=== PATIENT | female | born 1965 | race Caucasian/White ===

== ENCOUNTER 2020-04-16 08:37 | Outpatient (NON) | payer MEDICARE, OTHER, SELFPAY ==
[2020-04-17 06:46] LABS: SARS-CoV-2 RNA PCR Negative
== END 2020-04-16 08:38 ==
LOC: ANHCOVIDDT 08:39
PROVIDERS: PCP Family Medicine; Visit Provider Family Medicine
DX: J01.90 Acute sinusitis, unspecified (principal); Z20.828 Contact with and (suspected) exposure to other viral communicable diseases
CPT/HCPCS: 87635; C9803; U0003

== ENCOUNTER 2020-05-10 11:06 | Outpatient (NON) | payer MEDICARE, OTHER, SELFPAY ==
[2020-05-10 23:01] LABS: SARS-CoV-2 RNA PCR Negative
== END 2020-05-10 11:07 ==
LOC: ANHCOVIDDT 11:08
PROVIDERS: PCP Family Medicine; Visit Provider Family Medicine
DX: Z20.828 Contact with and (suspected) exposure to other viral communicable diseases (principal); J01.90 Acute sinusitis, unspecified
CPT/HCPCS: 87635; C9803; U0003

== ENCOUNTER → 2020-07-01 14:10 | Outpatient (CLI) | payer MEDICARE, OTHER, SELFPAY ==
--- NOTE | ~2020-07-01 | MM_ITS ---
EXAMINATION: MM screening [facility] BI w ana HISTORY: Screening mammogram TECHNIQUE: Craniocaudal and mediolateral oblique 3-D tomosynthesis images were obtained and synthetic 2-D images were generated. CAD analysis was submitted and interpreted. COMPARISON: 05/02/2018, 08/17/2016, 04/27/2015 BREAST PARENCHYMAL COMPOSITION: There are scattered areas of fibroglandular density. FINDINGS: There is no evidence of suspicious mass, calcification, or architectural distortion to sugg est malignancy in either breast. There has been no suspicious interval change. IMPRESSION: 1. No mammographic evidence of malignancy. 2. Recommend routine screening mammography in one year. BI-RADS Category 1: Negative Reviewed, dictated and finalized at location A. ER RUNNER
== END ==
PROVIDERS: PCP Family Medicine; Referring Provider Obstetrics & Gynecology; Visit Provider Obstetrics & Gynecology Gynecology
DX: Z12.31 Encounter for screening mammogram for malignant neoplasm of breast (principal)
CPT/HCPCS: 77063; 77067

== ENCOUNTER → 2020-09-06 15:23 | Outpatient (CLI) | payer MEDICARE, OTHER, SELFPAY ==
--- NOTE | ~2020-09-06 | XR_ITS ---
XR chest 2V DATE: 09/06/2020 15:37 INDICATION: Cough. Acute bronchitis. TECHNIQUE: PA and lateral views COMPARISON: 03/13/2009 PA and lateral chest FINDINGS: Normal heart size. No hilar or mediastinal enlargement. No pulmonary infiltrate or consolid ation, pleural effusion or pulmonary vascular congestion or pneumothorax. Diffuse osteopenia. IMPRESSION: No active cardiopulmonary disease Reviewed, dictated and finalized at location A.
== END ==
PROVIDERS: PCP Family Medicine; Visit Provider Family Medicine
DX: J20.9 Acute bronchitis, unspecified (principal)
CPT/HCPCS: 71046

== ENCOUNTER → 2020-09-07 07:10 | Outpatient (CLI) | payer MEDICARE, OTHER, SELFPAY ==
[2020-09-07 20:45] LABS: SARS-CoV-2 RNA PCR Negative
== END ==
PROVIDERS: PCP Family Medicine; Visit Provider Family Medicine
DX: J20.9 Acute bronchitis, unspecified (principal); Z20.822 Contact with and (suspected) exposure to COVID-19
CPT/HCPCS: C9803; U0003; U0005

== ENCOUNTER → 2020-12-21 15:33 | Outpatient (CLI) | payer MEDICARE, OTHER, SELFPAY ==
--- NOTE | ~2020-12-21 | XR_ITS ---
XR lumbar spine 2-3V 12/21/2020 15:59 Indication: Low back pain Procedure: 3 views lumbar spine Comparison: No prior studies for comparison. Findings: Normal lumbar lordosis. Vertebral body heights are maintained. There is disc narrowing at a ll lumbar levels. No evidence for acute fracture or traumatic malalignment. No spondylolisthesis. Ped icles intact. Sacral foramen are symmetric. Impression: 1: Mild lumbar spondylosis. Reviewed, dictated and finalized at location A. Impression: 1: Mild lumbar spondylosis.
--- NOTE | ~2020-12-21 | XR_ITS ---
XR thoracic spine 3V 12/21/2020 16:00 Indication: Thoracic back pain for 2 years Procedure: 4 views thoracic spine Comparison: No prior studies for comparison. Findings: Mild dextrocurvature of the thoracic spine. Vertebral body heights are maintained. No fract ure or traumatic malalignment. There is mild disc narrowing and endplate hypertrophy at multiple leve ls. No paraspinal soft tissue abnormality. Calcified granuloma left upper lung. Surrounding osseous s tructures within normal limits. Pedicles intact. Impression: 1: Mild thoracic spondylosis. Reviewed, dictated and finalized at location A. Impression: 1: Mild thoracic spondylosis.
== END ==
PROVIDERS: PCP Family Medicine; Visit Provider Nurse Practitioner Family
DX: M47.894 Other spondylosis, thoracic region (principal); M47.896 Other spondylosis, lumbar region
CPT/HCPCS: 72072; 72100

== ENCOUNTER 2021-03-08 09:04 | Outpatient (CLI) | payer MEDICARE, OTHER, SELFPAY ==
--- NOTE | ~2021-03-08 | US_ITS ---
EXAMINATION: US abdomen complete EXAM DATE: 03/08/2021 09:54 INDICATION: K80.50 - Calculus of bile duct without cholangitis or cho.... TECHNIQUE: Multiple grayscale and Doppler images of the complete abdomen were obtained (by a technolo gist who performed the scan) and subsequently reviewed. Comparison is made to prior examination from 01/16/2008. FINDINGS: The abdominal aorta is normal in caliber. Visualized portion IVC is patent. The pancreatic head a nd body are normal in appearance. The pancreatic tail is not visualized. The liver has normal echogenicity and contour. There are no focal liver lesions identified. There is no evidence of intrahepatic biliary duct dilation. Portal venous flow was seen in the hepatopedal , normal direction and has normal Doppler waveform. Common bile duct measures 3 mm, which is normal. The gallbladder wall is normal in thickness, with ex pected amount of distention. No sonographic evidence of pericholecystic fluid. There is no cholelit hiases. Technologist performing exam reports patient did not demonstrate sonographic Levy's sign. Please note that this sign is less reliable in patients who have received pain medication. Right kidney: There is normal contour and echogenicity. It measures 10.5 x 3.4 x 3.5 centimeters. There are no focal renal lesions identified. There is no hydronephrosis. Left kidney: There is normal contour and echogenicity. It measures 10.5 x 5.1 x 5.2 centimeters. T here are no focal renal lesions identified. There is no hydronephrosis. The spleen measures 9.5 centimeters and is morphologically normal. IMPRESSION: 1. Unremarkable complete abdominal ultrasound exam. Reviewed, dictated and finalized at location A.
== END 2021-03-08 09:05 | disposition home or self-care (01) ==
LOC: ANHIMG 09:07
PROVIDERS: PCP Family Medicine; Visit Provider Family Medicine
DX: K80.50 Calculus of bile duct without cholangitis or cholecystitis without obstruction (principal)
CPT/HCPCS: 76700

== ENCOUNTER 2021-09-04 15:20 | Emergency (ER) | payer MEDICARE, MEDICAID, SELFPAY ==
--- NOTE | ~2021-09-04 | XR_ITS ---
EXAMINATION: XR chest 2V Exam Date/Time: 09/04/2021 15:54 CDT CLINICAL HISTORY: dry cough and central chest pain x 1 wk Comparison: 09/06/2020. RESULT: Lines, tubes, and devices: None. Lungs and pleura: Clear. Cardiomediastinal silhouette: Stable cardiomediastinal silhouette. Other: No acute osseous or upper abdominal finding. IMPRESSION: No acute cardiopulmonary process. Reviewed, dictated and finalized at location K.
[2021-09-04 15:25] VITALS: BP 178/90; PULSE 76; RESP 22; TEMP 36.7; O2SAT 97
--- NOTE | 2021-09-04 15:40 | ED.URI ---
HPI - URI/Sore Throat General Chief Complaint: Upper Respiratory Infection Stated Complaint: cough, congestion, headache, sinus Time Seen by Provider: 09/04/21 15:38 Source: patient and RN notes reviewed Mode of arrival: ambulatory Limitations: no limitations History of Present Illness HPI Narrative: Patient states that she has been sick for about a week. She did a tele visit with her doctor and was prescribed antibiotic she is on day 10/04. She was not tested for COVID and is concerned about that. MD elicited complaint: cough, sore throat, rhinorrhea and nasal congestion Onset (ago): week(s) (1) Consistency: constant Severity: moderate Description of mucous: yellow and green Able to tolerate fluids by mouth: Yes Exacerbating factors: nothing Relieving factors: nothing Context: sick contacts Associated symptoms: fever, myalgias, headache and cough Treatments prior to arrival: antibiotics Related Data Home Medications Medication Instructions Recorded Confirmed cyanocobalamin (vitamin B-12) 1,000 mcg PO DAILY 01/28/20 07/27/21 1,000 mcg tablet ubrogepant 50 mg tablet 50 mg PO ONCE PRN 04/19/21 07/27/21 Allergies Allergy/AdvReac Type Severity Reaction Status Date / Time Penicillins Allergy Unknown Abdominal Verified 09/04/21 15:55 pain Review of Systems Review of Systems: All systems reviewed & are unremarkable except as noted in HPI and below PMFSH Past Medical History Medical History Acute bronchitis Acute non-recurrent maxillary sinusitis BMI 31.0-31.9,adult BMI 33.0-33.9,adult BMI 34.0-34.9,adult Essential (primary) hypertension Gastritis Herpes zoster (~03/08/21) right upper chest Irritable bowel syndrome with both constipation and diarrhea Lumbago Mixed hyperlipidemia Total cholesterol 183, triglycerides 183, HDL 59 and LDL 96 on 07/27/2021 Muscle spasm SANJEEV treated with BiPAP Otitis externa Polyneuropathy Recurrent biliary colic Screening for osteoporosis (12/16/20) normal DEXA bone density study today with T-score 1.0 at the spine and 0.3 at the hips 12/16/2020 Thoracic back pain MRI of the thoracic spine on 12/27/2020 was unremarkable except for a benign 8 mm hemangioma at T6. No significant spinal stenosis or neuroforaminal stenosis noted Thoracic spondylosis with radiculopathy Tobacco use disorder, continuous The patient quit smoking December, UTI (urinary tract infection) Family History Family History Mother Depression Family history of arthritis Father Family history of cardiovascular disease Family history of arthritis Grandparent Carcinoma of colon Social History Social History (Updated 09/04/21 @ 15:55 by Js Montague MD) Smoking status: Current some day smoker Tobacco type: cigarettes and e-cigarettes/vaping Alcohol intake: current Substance use: never Substance use type: does not use Exam Const: General: healthy appearing, no acute distress and alert Nutritional Appearance: well nourished Orientation/consciousness: patient oriented x3 HENMT: Head: normal to inspection Ears: external ears normal Eyes: Conjunctivae: conjunctivae normal Pupils: Equal, round and reactive pupils present EOM: EOMs intact bilaterally Neck: Neck: normal visual inspection and no lymphadenopathy Resp: Effort & Inspection: normal respiratory effort Auscultation: clear to auscultation bilaterally Cardio: Rate: regular rate Rhythm: regular rhythm GI: GI Palp: Yes Soft to palpation and No Tenderness to palpation present (GI) Auscultation: normal bowel sounds Back/Spine/Pelvis: Cervical Spine: cervical ROM normal Thoracic/Lumbar Spine: thoraco-lumbar ROM normal Skin: General skin exam: normal color Rashes: no rashes Neuro: General: patient oriented x3, moves all extremities, no focal motor deficits and CN's II-XI intact bilaterally Speech: normal speech
[2021-09-04 16:40] LABS: Influenza A QL RT-PCR Negative (Negative); Influenza B QL RT-PCR Negative (Negative); SARS-CoV-2 RNA PCR Negative (Negative)
[2021-09-04 16:45] VITALS: BP 165/88; PULSE 69; RESP 18; TEMP 36.6; O2SAT 98
== END 2021-09-04 16:47 | disposition home or self-care (01) ==
PROVIDERS: Emergency Provider Emergency Medicine; PCP Family Medicine
DX: J40 Bronchitis, not specified as acute or chronic (principal); Z20.822 Contact with and (suspected) exposure to COVID-19; F17.200 Nicotine dependence, unspecified, uncomplicated
CPT/HCPCS: 71046; 87426; 87502; 99283; C9803; U0003; U0005

== ENCOUNTER → 2021-10-21 13:39 | Outpatient (CLI) | payer MEDICARE, MEDICAID, SELFPAY ==
--- NOTE | ~2021-10-21 | MM_ITS ---
EXAMINATION: MM screening [facility] BI w ana HISTORY: Screening mammogram TECHNIQUE: Craniocaudal and mediolateral oblique 3-D tomosynthesis images were obtained and synthetic 2-D images were generated. CAD analysis was submitted and interpreted. COMPARISON: 06/2020, 05/02/2018, 08/17/2016 bilateral screening mammogram examinations BREAST PARENCHYMAL COMPOSITION: The breasts are almost entirely fatty. FINDINGS: There is no evidence of suspicious mass, calcification, or architectural distortion to sugg est malignancy in either breast. There has been no suspicious interval change. IMPRESSION: 1. No mammographic evidence of malignancy. 2. Recommend routine screening mammography in one year. BI-RADS Category 1: Negative Reviewed, dictated and finalized at location A.
== END ==
PROVIDERS: PCP Family Medicine; Visit Provider Nurse Practitioner
DX: Z12.31 Encounter for screening mammogram for malignant neoplasm of breast (principal)
CPT/HCPCS: 77063; 77067

== ENCOUNTER 2022-02-17 00:40 | Day surgery (SDC) | payer MEDICARE, MEDICAID, SELFPAY ==
[2022-02-07 13:53] VITALS: BMI 33.0
[2022-02-17 11:12] VITALS: BP 140/81; PULSE 68; RESP 18; TEMP 36.5; O2SAT 99
--- NOTE | 2022-02-17 11:17 | WPDANESEPPF ---
Anes - Initial Pre Proc Eval Procedure: Operation Date: 02/17/22 13:00 Proposed Procedures p Colonoscopy - Js Smith MD Date/Time: 02/17/22 11:17 Surgeon: Js Smith MD Pre Op Diagnosis: change in bowel habits Patient Data Age: 56 Gender: F Height: 1.68 m Weight: 92.5 kg Last Vital Signs Temp 97.7 F 02/17/22 11:12 Pulse 68 02/17/22 11:12 Resp 18 02/17/22 11:12 BP 140/81 02/17/22 11:12 Pulse Ox 99 02/17/22 11:12 O2 Del Method Room Air 02/17/22 11:12 Allergies Allergy/AdvReac Type Severity Reaction Status Date / Time Penicillins Allergy Unknown Abdominal Verified 02/17/22 11:11 pain Home Medications Medication Instructions Recorded Confirmed Type cyanocobalamin (vitamin B-12) 1,000 mcg PO DAILY 01/28/20 02/07/22 History 1,000 mcg tablet fluticasone propionate 50 1 spray intranasal BID #16 grams 09/20/20 02/07/22 Rx mcg/actuation nasal spray,suspension (Flonase Allergy Relief) omeprazole 40 mg capsule,delayed 40 mg PO DAILY #30 caps 02/21/21 02/07/22 Rx release albuterol sulfate 1.25 mg/3 mL 1.25 mg (3 mL) inhalation Q4-6H 03/09/21 02/07/22 Rx solution for nebulization PRN shortness of breath or wheezing #90 mL nebulizers (Justine LC Sprint #1 ea 03/09/21 02/07/22 Rx Nebulizer Set) albuterol sulfate 90 mcg/actuation 2 puff inhalation Q4H PRN 05/26/21 02/07/22 Rx aerosol inhaler (ProAir HFA) shortness of breath or wheezing #18 grams trazodone 50 mg tablet 150 mg PO .QHS #90 tabs 06/06/21 02/07/22 Rx atorvastatin 80 mg tablet 80 mg PO DAILY #30 tabs 06/07/21 02/07/22 Rx valsartan 160 1 tablet PO DAILY #30 tabs 06/07/21 02/07/22 Rx mg-hydrochlorothiazide 12.5 mg tablet fluorometholone acetate 0.1 % eye 1 drp ophthalmic (eye) QID #5 mL 07/12/21 02/07/22 Rx drops,suspension (Flarex) mometasone-formoterol HFA 200 2 puff inhalation BID #39 grams 07/12/21 02/07/22 Rx mcg-5 mcg/actuation aerosol inhaler (Dulera) cetirizine 10 mg tablet (Zyrtec) 10 mg PO DAILY PRN allergy 07/27/21 02/07/22 Rx symptoms #90 tabs blood sugar diagnostic (Blood #100 ea 08/05/21 02/07/22 Rx Glucose Test strips) blood-glucose meter (Blood Glucose #1 ea 08/05/21 02/07/22 Rx Monitoring kit) lancets 33 gauge (BD Ultra Fine #100 ea 08/05/21 02/07/22 Rx Lancets) carvedilol 12.5 mg tablet 12.5 mg PO Q12H #200 tabs 08/21/21 02/07/22 Rx alprazolam 0.25 mg tablet 0.25 mg PO TID PRN anxiety #270 11/22/21 02/07/22 Rx tabs nitroglycerin 0.4 mg sublingual 0.4 mg sublingual Q5M PRN chest 02/02/22 02/07/22 Rx tablet pain #90 tabs topiramate 25 mg tablet 25 mg PO BID #180 tabs 02/02/22 02/07/22 Rx peg 3350-electrolytes 236 240 ml PO Q10M #4,000 mL 02/06/22 02/07/22 Rx gram-22.74 gram-6.74 gram-5.86 gram solution (Golytely) valacyclovir 500 mg tablet 500 mg PO DAILY 02/07/22 02/07/22 History Patient hx anesthesia problems: none Family hx anesthesia problems: none Results Review: All pre-operative results and documents have been reviewed as part of the pre-operative evaluation. [facility] Past Medical History Medical History (Updated 02/12/22 @ 23:18 by Tor Galo MD) Acute bronchitis Acute non-recurrent maxillary sinusitis BMI 31.0-31.9,adult BMI 33.0-33.9,adult BMI 34.0-34.9,adult Essential (primary) hypertension Gastritis Herpes zoster (~03/08/21) right upper chest Irritable bowel syndrome with both constipation and diarrhea Mixed hyperlipidemia Total cholesterol 183, triglycerides 183, HDL 59 and LDL 96 on 07/27/2021. Total cholesterol 185, triglycerides 151, HDL 64 and LDL 96 on 02/02/2022. Muscle spasm Obesity (BMI 30.0-34.9) SANJEEV treated with BiPAP Otitis externa Polyneuropathy normal vitamin B12 and folic acid on 02/02/2022 Recurrent biliary colic Screening for osteoporosis (12/16/20) normal DEXA bone density study today with T-score 1.0 at the spine and 0.3 at the hips 12/16/2020 Thoracic back pain
[2022-02-17] MEDS: LACTATED RINGERS 1,000 ML 150 ML IV CONT (11:20)
[2022-02-17 11:45] VITALS: BP 144/90; PULSE 64; RESP 16; O2SAT 96
--- NOTE | 2022-02-17 11:45 | SUR.OPER ---
Dr. Smith advised no sigmoid polyp specimen recovered
--- NOTE | 2022-02-17 11:48 | PM.IMHP ---
H&P: HPI History of Present Illness Date/Time: 02/17/22 11:48 Chief Complaint: Change in bowel habits Narrative: this is a 56-year-old white female patient referred by Dr. Galo because of change in bowel habits. Colonoscopy is requested. Patient reports alternating diarrhea with constipation. She denies any bleeding. Her weight has remained stable. Colonoscopy is requested. Patient also has multiple other complaints including right chest pain that causes her to sleep in an awkward position for relief. She states gallbladder ultrasound was unremarkable. She complains of frequent belching. Dyspeptic symptoms. She reports no improvement on taking Pepto-Bismol or Tums. She would like to have an EGD performed at some point. She denies any dysphagia. Many years ago had an EGD with delayed gastric emptying. Family history noncontributory. Patient reports taking omeprazole 40mg p.o. daily without relief of symptoms. Review of Systems Review of Systems: Review of systems noncontributory. [facility] Past Medical History Medical History (Updated 02/17/22 @ 11:50 by Js Smith MD) Acute bronchitis Acute non-recurrent maxillary sinusitis BMI 31.0-31.9,adult BMI 33.0-33.9,adult BMI 34.0-34.9,adult Essential (primary) hypertension Gastritis Herpes zoster (~03/08/21) right upper chest Irritable bowel syndrome with both constipation and diarrhea Mixed hyperlipidemia Total cholesterol 183, triglycerides 183, HDL 59 and LDL 96 on 07/27/2021. Total cholesterol 185, triglycerides 151, HDL 64 and LDL 96 on 02/02/2022. Muscle spasm Obesity (BMI 30.0-34.9) SANJEEV treated with BiPAP Otitis externa Polyneuropathy normal vitamin B12 and folic acid on 02/02/2022 Recurrent biliary colic Screening for osteoporosis (12/16/20) normal DEXA bone density study today with T-score 1.0 at the spine and 0.3 at the hips 12/16/2020 Thoracic back pain MRI of the thoracic spine on 12/27/2020 was unremarkable except for a benign 8 mm hemangioma at T6. No significant spinal stenosis or neuroforaminal stenosis noted Thoracic spondylosis with radiculopathy Tobacco use disorder, continuous The patient quit smoking December, UTI (urinary tract infection) Vascular spasm Family History Family History Mother Depression Family history of arthritis Father Family history of cardiovascular disease Family history of arthritis Grandparent Carcinoma of colon Social History Social History (Updated 02/02/22 @ 10:46 by Belle Campbell MA) Smoking status: Current some day smoker Tobacco type: cigarettes Additional smoking assessment comments: smokes 2 cigarettes a week Alcohol intake: current Drinks per week: 2 Alcohol use details: 2 a month Substance use: never Substance use type: does not use Living arrangements: alone Spiritual care concerns: No Meds Home Medications and Allergies Home Medications Medication Instructions Recorded Confirmed Type cyanocobalamin (vitamin B-12) 1,000 mcg PO DAILY 01/28/20 02/07/22 History 1,000 mcg tablet fluticasone propionate 50 1 spray intranasal BID #16 grams 09/20/20 02/07/22 Rx mcg/actuation nasal spray,suspension (Flonase Allergy Relief) omeprazole 40 mg capsule,delayed 40 mg PO DAILY #30 caps 02/21/21 02/07/22 Rx release albuterol sulfate 1.25 mg/3 mL 1.25 mg (3 mL) inhalation Q4-6H 03/09/21 02/07/22 Rx solution for nebulization PRN shortness of breath or wheezing #90 mL nebulizers (Justine LC Sprint #1 ea 03/09/21 02/07/22 Rx Nebulizer Set) albuterol sulfate 90 mcg/actuation 2 puff inhalation Q4H PRN 05/26/21 02/07/22 Rx aerosol inhaler (ProAir HFA) shortness of breath or wheezing #18 grams trazodone 50 mg tablet 150 mg PO .QHS #90 tabs 06/06/21 02/07/22 Rx atorvastatin 80 mg tablet 80 mg PO DAILY #30 tabs 06/07/21 02/07/22 Rx valsartan 160 1 tablet PO DAILY #30 tabs 06/07/21 0
[2022-02-17 11:55] VITALS: BP 151/76; PULSE 62; RESP 18; O2SAT 98
[2022-02-17 12:05] VITALS: BP 127/67; PULSE 56; RESP 18; O2SAT 99
== END 2022-02-17 12:16 | disposition home or self-care (01) ==
PROVIDERS: PCP Family Medicine; Visit Provider Internal Medicine Gastroenterology
PROC: 0DJD8ZZ Inspection of Lower Intestinal Tract, Via Natural or Artificial Opening Endoscopic (ICD-10-PCS; CPT 45378; principal; 2022-02-17 13:00)
DX: R19.4 Change in bowel habit (principal); K63.5 Polyp of colon; K64.8 Other hemorrhoids; Z79.51 Long term (current) use of inhaled steroids; I10 Essential (primary) hypertension; K58.2 Mixed irritable bowel syndrome; G47.33 Obstructive sleep apnea (adult) (pediatric); E78.2 Mixed hyperlipidemia; M47.24 Other spondylosis with radiculopathy, thoracic region; G62.9 Polyneuropathy, unspecified; M62.838 Other muscle spasm; B02.9 Zoster without complications; F17.210 Nicotine dependence, cigarettes, uncomplicated; E66.9 Obesity, unspecified; Z68.32 Body mass index [BMI] 32.0-32.9, adult
CPT/HCPCS: 45385; J2704; J7120

== ENCOUNTER 2022-03-24 02:13 | Day surgery (SDC) | payer MEDICARE, MEDICAID, SELFPAY ==
[2022-03-17 14:35] VITALS: BMI 32.3
--- NOTE | 2022-03-24 13:31 | WPDANESEPPF ---
Anes - Initial Pre Proc Eval Procedure: Operation Date: 03/24/22 14:45 Proposed Procedures p Esophagogastroduodenoscopy - Js Smith MD Date/Time: 03/24/22 13:31 Surgeon: Js Smith MD Pre Op Diagnosis: gastritis, gerd Patient Data Age: 57 Gender: F Height: 1.68 m Weight: 91 kg Allergies Allergy/AdvReac Type Severity Reaction Status Date / Time Penicillins Allergy Unknown Abdominal Verified 03/24/22 13:32 pain Home Medications Medication Instructions Recorded Confirmed Type cyanocobalamin (vitamin B-12) 1,000 mcg PO DAILY 01/28/20 03/17/22 History 1,000 mcg tablet fluticasone propionate 50 1 spray intranasal BID #16 grams 09/20/20 03/17/22 Rx mcg/actuation nasal spray,suspension (Flonase Allergy Relief) omeprazole 40 mg capsule,delayed 40 mg PO DAILY #30 caps 02/21/21 03/17/22 Rx release albuterol sulfate 1.25 mg/3 mL 1.25 mg (3 mL) inhalation Q4-6H 03/09/21 03/17/22 Rx solution for nebulization PRN shortness of breath or wheezing #90 mL nebulizers (Justine LC Sprint #1 ea 03/09/21 03/17/22 Rx Nebulizer Set) albuterol sulfate 90 mcg/actuation 2 puff inhalation Q4H PRN 05/26/21 03/17/22 Rx aerosol inhaler (ProAir HFA) shortness of breath or wheezing #18 grams trazodone 50 mg tablet 150 mg PO .QHS #90 tabs 06/06/21 03/17/22 Rx fluorometholone acetate 0.1 % eye 1 drp ophthalmic (eye) QID #5 mL 07/12/21 03/17/22 Rx drops,suspension (Flarex) mometasone-formoterol HFA 200 2 puff inhalation BID #39 grams 07/12/21 03/17/22 Rx mcg-5 mcg/actuation aerosol inhaler (Dulera) cetirizine 10 mg tablet (Zyrtec) 10 mg PO DAILY PRN allergy 07/27/21 03/17/22 Rx symptoms #90 tabs blood sugar diagnostic (Blood #100 ea 08/05/21 03/17/22 Rx Glucose Test strips) blood-glucose meter (Blood Glucose #1 ea 08/05/21 03/17/22 Rx Monitoring kit) lancets 33 gauge (BD Ultra Fine #100 ea 08/05/21 03/17/22 Rx Lancets) carvedilol 12.5 mg tablet 12.5 mg PO Q12H #200 tabs 08/21/21 03/17/22 Rx alprazolam 0.25 mg tablet 0.25 mg PO TID PRN anxiety #270 11/22/21 03/17/22 Rx tabs nitroglycerin 0.4 mg sublingual 0.4 mg sublingual Q5M PRN chest 02/02/22 03/17/22 Rx tablet pain #90 tabs topiramate 25 mg tablet 25 mg PO BID #180 tabs 02/02/22 03/17/22 Rx valacyclovir 500 mg tablet 500 mg PO DAILY 02/07/22 03/17/22 History atorvastatin 80 mg tablet 80 mg PO DAILY #90 tabs 02/28/22 03/17/22 Rx valsartan 160 1 tablet PO DAILY #90 tabs 02/28/22 03/17/22 Rx mg-hydrochlorothiazide 12.5 mg tablet Patient hx anesthesia problems: none Family hx anesthesia problems: none Results Review: All pre-operative results and documents have been reviewed as part of the pre-operative evaluation. [facility] Past Medical History Medical History (Updated 02/17/22 @ 15:52 by Tor Galo MD) Acute bronchitis Acute non-recurrent maxillary sinusitis BMI 31.0-31.9,adult BMI 33.0-33.9,adult BMI 34.0-34.9,adult Essential (primary) hypertension Gastritis Herpes zoster (~03/08/21) right upper chest Irritable bowel syndrome with both constipation and diarrhea Mixed hyperlipidemia Total cholesterol 183, triglycerides 183, HDL 59 and LDL 96 on 07/27/2021. Total cholesterol 185, triglycerides 151, HDL 64 and LDL 96 on 02/02/2022. Muscle spasm Obesity (BMI 30.0-34.9) SANJEEV treated with BiPAP Otitis externa Polyneuropathy normal vitamin B12 and folic acid on 02/02/2022 Polyp of colon (02/17/22) multiple tiny polyps of the sigmoid colon 02/17/2022 with recheck in 5 years. Recurrent biliary colic Screening for osteoporosis (12/16/20) normal DEXA bone density study today with T-score 1.0 at the spine and 0.3 at the hips 12/16/2020 Thoracic back pain MRI of the thoracic spine on 12/27/2020 was unremarkable except for a benign 8 mm hemangioma at T6. No significant spinal stenosis or neuroforaminal stenosis noted Thoracic spondylosis with radiculopathy Tobacco use disorder, continuo
[2022-03-24 13:33] VITALS: BP 145/83; PULSE 77; RESP 18; TEMP 36.4; O2SAT 97
[2022-03-24] MEDS: LACTATED RINGERS 1,000 ML 150 ML IV CONT (13:40)
--- NOTE | 2022-03-24 13:50 | PM.HPGS ---
History of Present Illness History of Present Illness Consent: Risks, benefits, and alternatives have been discussed and questions answered. Patient agrees to proceed with procedure. Chief complaint: gastritis, gerd Narrative: Olga Lidia Nelson is a 57 year old female Presents for EGD. Patient complains of ongoing bloating and abdominal distension. Frequent belching. She states belches or foul smelling. Patient has had no improvement on taking omeprazole 40mg p.o. daily. She has tried to modify her diet with no help. Previously had regular bowel movements colonoscopy 1 month ago was unremarkable. A small benign colon polyp identified. Bowel habits have improved on fiber supplementation. Patient denies any bleeding or weight loss. Workup of possible gallbladder disease has been negative to date. Review of Systems Review of Systems: Review of systems noncontributory. [facility] Past Medical History Medical History (Updated 03/24/22 @ 13:52 by Js Smith MD) Acute bronchitis Acute non-recurrent maxillary sinusitis BMI 31.0-31.9,adult BMI 33.0-33.9,adult BMI 34.0-34.9,adult Essential (primary) hypertension Gastritis Herpes zoster (~03/08/21) right upper chest Irritable bowel syndrome with both constipation and diarrhea Mixed hyperlipidemia Total cholesterol 183, triglycerides 183, HDL 59 and LDL 96 on 07/27/2021. Total cholesterol 185, triglycerides 151, HDL 64 and LDL 96 on 02/02/2022. Muscle spasm Obesity (BMI 30.0-34.9) SANJEEV treated with BiPAP Otitis externa Polyneuropathy normal vitamin B12 and folic acid on 02/02/2022 Polyp of colon (02/17/22) multiple tiny polyps of the sigmoid colon 02/17/2022 with recheck in 5 years. Recurrent biliary colic Screening for osteoporosis (12/16/20) normal DEXA bone density study today with T-score 1.0 at the spine and 0.3 at the hips 12/16/2020 Thoracic back pain MRI of the thoracic spine on 12/27/2020 was unremarkable except for a benign 8 mm hemangioma at T6. No significant spinal stenosis or neuroforaminal stenosis noted Thoracic spondylosis with radiculopathy Tobacco use disorder, continuous The patient quit smoking December, UTI (urinary tract infection) Vascular spasm Family History Family History Mother Depression Family history of arthritis Father Family history of cardiovascular disease Family history of arthritis Grandparent Carcinoma of colon Social History Social History (Updated 02/02/22 @ 10:46 by Belle Campbell MA) Smoking packs per day: 2 Smoking cigarettes per day: 40.0 Years smoked: 25 Smoking pack-years: 50.00 Smoking status: Former smoker Tobacco type: cigarettes Additional smoking assessment comments: smokes 2 cigarettes a week Alcohol intake: current Drinks per week: 2 Alcohol use details: 2 a month Substance use: never Substance use type: does not use Living arrangements: with family Spiritual care concerns: No Meds Home Medications and Allergies Home Medications Medication Instructions Recorded Confirmed Type cyanocobalamin (vitamin B-12) 1,000 mcg PO DAILY 01/28/20 03/24/22 History 1,000 mcg tablet fluticasone propionate 50 1 spray intranasal BID #16 grams 09/20/20 03/24/22 Rx mcg/actuation nasal spray,suspension (Flonase Allergy Relief) omeprazole 40 mg capsule,delayed 40 mg PO DAILY #30 caps 02/21/21 03/24/22 Rx release albuterol sulfate 1.25 mg/3 mL 1.25 mg (3 mL) inhalation Q4-6H 03/09/21 03/24/22 Rx solution for nebulization PRN shortness of breath or wheezing #90 mL nebulizers (Justine LC Sprint #1 ea 03/09/21 03/24/22 Rx Nebulizer Set) albuterol sulfate 90 mcg/actuation 2 puff inhalation Q4H PRN 05/26/21 03/24/22 Rx aerosol inhaler (ProAir HFA) shortness of breath or wheezing #18 grams trazodone 50 mg tablet 150 mg PO .QHS #90 tabs 06/06/21 03/24/22 Rx fluorometholone acetate 0.1 % eye 1 drp o
[2022-03-24 14:08] VITALS: BP 112/55; PULSE 66; RESP 23; O2SAT 96
[2022-03-24 14:18] VITALS: BP 121/70; PULSE 65; RESP 17; O2SAT 98
[2022-03-24 14:28] VITALS: BP 133/68; PULSE 64; RESP 22; O2SAT 97
== END 2022-03-24 14:46 | disposition home or self-care (01) ==
PROVIDERS: PCP Family Medicine; Visit Provider Internal Medicine Gastroenterology
PROC: 0DJ08ZZ Inspection of Upper Intestinal Tract, Via Natural or Artificial Opening Endoscopic (ICD-10-PCS; CPT 43235; principal; 2022-03-24 14:45)
DX: R10.84 Generalized abdominal pain (principal); R14.0 Abdominal distension (gaseous); R14.2 Eructation; K58.2 Mixed irritable bowel syndrome; I10 Essential (primary) hypertension; E78.2 Mixed hyperlipidemia; G47.33 Obstructive sleep apnea (adult) (pediatric); G62.9 Polyneuropathy, unspecified; M47.24 Other spondylosis with radiculopathy, thoracic region; F17.210 Nicotine dependence, cigarettes, uncomplicated; Z79.51 Long term (current) use of inhaled steroids; Z86.010 Personal history of colon polyps
CPT/HCPCS: 43239; 87081; J2704; J7120

== ENCOUNTER 2022-05-12 14:29 | Emergency (ER) | payer MEDICARE, MEDICAID, SELFPAY ==
--- NOTE | ~2022-05-12 | XR_ITS ---
EXAMINATION: XR chest 1V portable INDICATION: Shortness of breath, COVID 19 positive TECHNIQUE: Portable AP chest at 1524 hours COMPARISON: 09/04/2021 FINDINGS: The lungs are free of acute opacities. No pleural effusion or pneumothorax. The cardiomedia stinal silhouette is normal. The visualized bones and soft tissues are unremarkable. Calcified pulmon afia nodules and calcified left hilar lymph nodes are consistent with old granulomatous disease. IMPRESSION: 1. No acute cardiopulmonary abnormality. Reviewed, dictated and finalized at location A. ING SUPERVISOR
[2022-05-12 14:37] VITALS: BP 154/81; PULSE 96; TEMP 36.8; O2SAT 97
[2022-05-12 14:38] VITALS: BP 154/81; PULSE 97; RESP 16; TEMP 36.9; O2SAT 97
[2022-05-12 14:47] VITALS: PULSE 96; RESP 28; O2SAT 97
--- NOTE | 2022-05-12 14:47 | ECG_ITS ---
Measurements Intervals [place] Rate: 96 P: 52 MT: 184 QRS: 61 QRSD: 78 T: 70 QT: 339 QTc: 429 Interpretive Statements SINUS RHYTHM NORMAL ECG NO PREVIOUS ECG AVAILABLE FOR COMPARISON Electronically Signed On 05-12-2022 16:35:15 TENTER FEEDER by Quincy Roper M.D.
--- NOTE | 2022-05-12 14:49 | ED.GENADULT ---
HPI - General Adult General Chief complaint: Shortness of Breath/Dyspnea Stated complaint: covid Time Seen by Provider: 05/12/22 14:40 Source: patient Mode of arrival: ambulatory Limitations: no limitations History of Present Illness HPI narrative: Patient is a 57-year-old white female History of COPD asthma fibromyalgia, chronic fatigue syndrome, polyneuropathy hypertension recently diagnosed with COVID 3 or 4 days ago. She has been ill for the last 6 days. Complains of shortness of breath wheezing and coughing up green sputum the past few days. She is placed on antiviral and he has azithromycin. She has been using her albuterol nebulizer 3 times a day. She quit smoking 3 weeks ago so she could get Life insurance and year. Complains of anterior chest pain since last night constant. denied any extremity pain abdominal pain nausea vomiting problems voiding or stooling bleeding or bruising. Related Data Home Medications Medication Instructions Recorded Confirmed albuterol sulfate 1.25 mg/3 mL 1.25 mg inhalation Q2-3H 05/12/22 05/12/22 solution for nebulization albuterol sulfate 90 mcg/actuation 2 puff inhalation Q4H 05/12/22 05/12/22 aerosol inhaler alprazolam 0.25 mg tablet 0.25 mg PO TID PRN Anxiety 05/12/22 05/12/22 atorvastatin 80 mg tablet 80 mg PO DAILY 05/12/22 05/12/22 carvedilol 12.5 mg tablet 12.5 mg PO BID 05/12/22 05/12/22 nitroglycerin 0.4 mg sublingual 0.4 mg sublingual DIRECTED 05/12/22 05/12/22 tablet omeprazole 40 mg capsule,delayed 40 mg PO DAILY 05/12/22 05/12/22 release topiramate 25 mg tablet 25 mg PO BID 05/12/22 05/12/22 trazodone 50 mg tablet 50 mg PO TID 05/12/22 05/12/22 valacyclovir 500 mg tablet 500 mg PO DAILY 05/12/22 05/12/22 valsartan 160 1 tablet PO DAILY 05/12/22 05/12/22 mg-hydrochlorothiazide 12.5 mg tablet Allergies Allergy/AdvReac Type Severity Reaction Status Date / Time Penicillins Allergy Unknown Abdominal Verified 05/12/22 14:43 pain Review of Systems Review of Systems: All systems reviewed & are unremarkable except as noted in HPI and below Constitutional: Constitutional: Reports no additional constitutional complaints, Denies chills and Reports fever(s) Comments: She said her temperature was a 100?. She has had a decreased appetite and only has been eating soup for the last 3 days. Eyes: Eyes: Denies no additional eye complaints ENT: Reports system reviewed and no additional complaints, except as documented, Denies dizziness and Reports nasal congestion Comments: Complains of a headache Cardiovascular: Cardiovascular: Denies no additional cardiovascular complaints, Reports chest pain and Denies radiating jaw, neck or arm pain Respiratory: Respiratory: Reports as per HPI, Reports chest congestion, Reports cough, Reports dyspnea and Reports wheezing Gastrointestinal: Gastrointestinal: Reports no additional gastrointestinal complaints Genitourinary: Genitourinary: Reports no additional female genitourinary complaints Musculoskeletal: Musculoskeletal: Reports no additional musculoskeletal complaints and Reports as per HPI Integumentary/Breasts: Skin/Breast: Reports system reviewed and no additional complaints, except as docu Neurologic: Reports system reviewed and no additional complaints, except as documented Psychiatric: Comments: Patient is tearful and stated she buried her father 1 week ago having of Alzheimer's disease and her mother is currently at her house and had a blood brain bleed a week and half ago. Endocrine: Endocrine: Reports no additional endocrine complaints PMFSH Past Medical History Medical History Acute bronchitis Acute non-recurrent maxillary sinusitis BMI 31.0-31.9,adult BMI 33.0-33.9,adult BMI 34.0-34.9,adult COVID-19 (05/07/22) tested positive in urgent care on 05/09/2022. Essential (primary) hypertension Gastritis normal EGD on 03/24/2022.
[2022-05-12] MEDS: IPRATROPIUM 0.5 MG/ALBUTEROL SULFATE 2.5 MG AMPUL.NEB 3 ML INHALATION ×2 (14:55→15:31)
[2022-05-12 15:00] VITALS: PULSE 98; RESP 24
[2022-05-12] MEDS: SODIUM CHLORIDE 0.9% IV 1,000 ML 999 ML IV CONT (15:01)
[2022-05-12 15:03] LABS: Basophils Absolute Auto 0.03 K/mm3 (0.00-0.10); Basophils Percent Auto 0.4 % (0.0-1.0); Eosinophils Absolute Auto 0.17 K/mm3 (0.02-0.50); Eosinophils Percent Auto 2.3 % (1.0-6.0); Hematocrit 41.4 % (35.0-49.0); Immature Granulocyte Absolute 0.03 K/mm3 (0.00-0.00); Immature Granulocyte Percent A 0.4 % (0.0-0.0); Lymphocytes Absolute Auto 0.41 K/mm3 (1.10-4.50); Lymphocytes Percent Auto 5.5 % (18.0-42.0); Mean Corpuscular HGB Conc 33.8 g/dL (32.0-36.0); Mean Corpuscular Hemoglobin 31.3 pg (27.0-31.0); Mean Corpuscular Volume 92.4 fL (78.0-102.0); Monocytes Absolute Auto 0.51 K/mm3 (0.10-0.90); Monocytes Percent Auto 6.9 % (2.0-11.0); Neutrophils Absolute Auto 6.3 K/mm3 (1.7-7.2); Neutrophils Percent Auto 84.5 % (50.0-70.0); Platelet Count Result 257 K/mm3 (150-420); Red Blood Count 4.48 M/mm3 (4.20-5.40); Red Cell Distribution Width 11.4 % (11.6-14.4); White Blood Count 7.4 K/mm3 (4.8-10.8)
[2022-05-12 15:18] LABS: Partial Thromboplastin Time 32.2 SEC (23.90-30.70); Prothrombin Time 10.7 Seconds (9.50-12.10)
[2022-05-12 15:20] LABS: D Dimer 0.74 mg/L (0.19-0.50)
--- NOTE | 2022-05-12 15:20 | PC.NURSE ---
ddimer 0.74. erp notified.
[2022-05-12 15:31] LABS: Alanine Aminotransferase 59 U/L (14-59); Albumin Level 3.7 g/dL (3.4-5.0); Alkaline Phosphatase 99 U/L (46-116); Anion Gap 9 mmol/L (8-16); Aspartate Amino Transferase 27 U/L (15-37); Bilirubin,Total 0.6 mg/dL (0.00-1.00); Blood Urea Nitrogen 10 mg/dL (7-18); Calcium 8.8 mg/dL (8.5-10.1); Carbon Dioxide 27 mmol/L (21-32); Chloride 102 mmol/L (98-108); Estimated Glomerular Filt Rate 56; Glucose 131 mg/dL (70-99); Osmolality Calculated 287 mOsm/kg (285-295); Potassium 3.8 mmol/L (3.5-5.1); Sodium 138 mmol/L (136-145); Total Protein 7.4 g/dL (6.4-8.2)
[2022-05-12 15:32] LABS: NT Pro B Type Natriuretic Pept 54 pg/mL (0-125); Troponin I 5.1 ng/L (0.00-60.4)
[2022-05-12] MEDS: HYDROcodone/acetaminophen (*CRX) 5-325 MG TABLET 1 TAB PO (15:46)
[2022-05-12 15:56] LABS: Base Excess ABG -0.9 mmol/L (0-2); HCO3 ABG 20.4 mmol/L (23-29); Modified Allen's Test Pass; Oxygen Content ABG 21.9 %vol (16.0-22.0); Oxygen Saturation ABG 94.6 % (95-97); Oxyhemoglobin 93.8 % (94-100); PCO2 ABG 26.5 mmHg (35-45); Site Drawn RIGHT RADIAL; Total Hemoglobin 16.6 g/dL (12.0-18.0)
[2022-05-12 15:57] LABS: Device ROOM AIR
[2022-05-12 16:11] VITALS: O2SAT 98
[2022-05-12 16:28] VITALS: BP 157/78; PULSE 86; RESP 16; TEMP 37.1; O2SAT 95
== END 2022-05-12 16:30 | disposition home or self-care (01) ==
PROVIDERS: Emergency Provider Emergency Medicine; PCP Family Medicine
DX: U07.1 COVID-19 (principal); J44.1 Chronic obstructive pulmonary disease with (acute) exacerbation; J45.901 Unspecified asthma with (acute) exacerbation; R07.9 Chest pain, unspecified; J44.9 Chronic obstructive pulmonary disease, unspecified; E78.2 Mixed hyperlipidemia; M79.7 Fibromyalgia; Z87.891 Personal history of nicotine dependence
CPT/HCPCS: 36415; 36600; 71045; 80053; 82805; 83880; 84484; 85025; 85380; 85610; 85730; 93005; 94640; 96360; 99284; A9270; J7030

== ENCOUNTER → 2023-06-28 14:58 | Outpatient (CLI) | payer MEDICARE, MEDICAID, SELFPAY ==
--- NOTE | ~2023-06-28 | XR_ITS ---
XR hip BI 2V w AP pelvis DATE: 06/28/2023 15:13 INDICATION: Right hip pain TECHNIQUE: AP pelvis. AP and lateral views of each hip. COMPARISON: None FINDINGS: No pelvic fracture or bone destruction. Normal alignment at the pubic symphysis and sacral iliac joints. Hip joint spaces are symmetric and relatively well preserved. No fracture, dislocation, avascular necrosis or bone destruction of either hip is detected. IMPRESSION: No significant abnormality Reviewed, dictated and finalized at location L. SALON MANAGER IMPRESSION: No significant abnormality
== END ==
PROVIDERS: PCP Family Medicine; Visit Provider Family Medicine
DX: M25.551 Pain in right hip (principal); M25.552 Pain in left hip
CPT/HCPCS: 73521

== ENCOUNTER 2024-05-26 10:09 | Outpatient (CLI) | payer MEDICARE, MEDICAID, SELFPAY ==
--- NOTE | ~2024-05-26 | MM_ITS ---
EXAMINATION: MM screening mratin BI w ana HISTORY: Screening mammogram TECHNIQUE: Craniocaudal and mediolateral oblique 3-D tomosynthesis images were obtained and synthetic 2-D images were generated. CAD analysis was submitted and interpreted. COMPARISON: 10/21/2021 07/01/2020 BREAST PARENCHYMAL COMPOSITION:Not Dense. The breasts are almost entirely fatty FINDINGS: No suspicious mass, calcification, or architectural distortion are identified in either sharif ast to suggest malignancy. There has been no suspicious interval change. IMPRESSION: No mammographic evidence of malignancy. Recommend routine screening mammography in one year. BI-RADS Category 1: Negative Reviewed, dictated and finalized at location . CASHIER
== END 2024-05-26 10:10 | disposition home or self-care (01) ==
LOC: MICIMG 10:09
PROVIDERS: PCP Family Medicine; Visit Provider Obstetrics & Gynecology Gynecology
DX: Z12.31 Encounter for screening mammogram for malignant neoplasm of breast (principal)
CPT/HCPCS: 77063; 77067

== ENCOUNTER 2025-05-01 07:46 | Outpatient (CLI) | payer MEDICARE, SELFPAY ==
[2025-05-01 08:49] LABS: Alanine Aminotransferase 26 U/L (6-35); Albumin Level 4.6 g/dL (3.5-5.1); Alkaline Phosphatase 67 U/L (38-126); Anion Gap 6 mmol/L (4-12); Aspartate Amino Transferase 34 U/L (14-36); Bilirubin,Total 0.8 mg/dL (0.2-1.3); Blood Urea Nitrogen 11 mg/dL (7-17); Calcium 9.4 mg/dL (8.4-10.2); Carbon Dioxide 32 mmol/L (22-30); Chloride 103 mmol/L (98-107); Cholesterol 288 mg/dL (0-200); Estimated Glomerular Filt Rate 56; Glucose 95 mg/dL (65-110); HDL Direct 75 mg/dL; Hemoglobin A1C 5.3 % (<5.7); Osmolality Calculated 291 mOsm/kg (285-295); Potassium 4.1 mmol/L (3.4-5.0); Sodium 141 mmol/L (137-145); Total Protein 7.2 g/dL (6.3-8.2); Triglycerides 181 mg/dL (<150)
== END 2025-05-01 07:47 | disposition home or self-care (01) ==
LOC: CHSLAB 07:52
PROVIDERS: PCP Family Medicine; Visit Provider Family Medicine
DX: E78.2 Mixed hyperlipidemia (principal); E11.9 Type 2 diabetes mellitus without complications
CPT/HCPCS: 36415; 80048; 80061; 80076; 83036